=== PATIENT | female | born 1960 | race Caucasian/White ===

== ENCOUNTER 2016-10-05 05:31 | Inpatient (IN) ==
[2016-09-28 10:45] LABS: Basophils % 0.8 % (0.0-0.8); Eosinophils # 0.2 10*3/uL (0.0-0.87); Eosinophils % 2.8 % (0.00-10.9); Hematocrit 33.8 VOL% (35.7-47.0); Hemoglobin 11.8 GM/DL (12.0-16.0); Immature Granulocytes % 0.2 %; Immature Granulocytes Absolute 0.01 #; Lymphocytes # 2.6 10*3/uL (1.4-4.0); Lymphocytes % 48.6 % (21.3-54.2); Mean Corpuscular HGB Conc 34.9 GM/DL (32-36); Mean Corpuscular Hemoglobin 33 PG (27-34); Mean Corpuscular Volume 93.9 FL (87-102); Mean Platelet Volume 10.6 FL (9.6-12.0); Monocytes # 0.5 10*3/uL (0.11-0.8); Monocytes % 8.9 % (1.7-12.7); Neutrophils % 38.7 % (38.7-73.9); Platelet Count 234 T/CUMM (130-400); Red Cell Distribution Width 12.4 % (9.3-17.3); White Blood Count 5.3 T/CUMM (4-12)
[2016-09-28 10:49] LABS: Apearance,Urine CLEAR (Clear); Bilirubin,Urine Negative (Negative); Blood, Urine Small mg/dL (Negative); Glucose,Urine (UA) Negative (Negative); Hyaline Casts,Urine 2 /LPF (0-3); Ketones,Urine Negative (Negative); Nitrite,Urine Negative (Negative); Protein,Urine Negative; RBC,Urine 1 /HPF (0-4); Squamous Epithelial Cell,Urine Occasional /HPF (0-10); Urine Color Yellow (Yellow); Urine Specific Gravity 1.009 (1.001-1.035); Urine Urobilinogen < 2.0 EU/DL (0.2-1.0); WBC,Urine 1 /HPF (0-6)
--- NOTE | 2016-09-28 10:51 | XRay Report ---
XR chest 2V Indication: Respiratory preoperative evaluation Comparison: 11 December 2012 Findings: The heart and mediastinum are normal in size and configuration. The pulmonary vascularity is normal in caliber. No lung infiltrates, effusions, pneumothorax or other abnormality is demonstrated. Impression: Normal chest x-ray PROCEDURE INTERPRETED AT [facility] DEPARTMENT OF RADIOLOGY Final Report Signed by: Dr. Robles Moore
[2016-09-28 10:53] LABS: PT Patient Result 10.7 SECS; Partial Thromboplastin Time 27.9 SECS (0-40)
[2016-09-28 11:16] LABS: Albumin 4.3 G/DL (3.4-5.0); Bilirubin,Total 0.9 MG/DL (0.2-1.0); Calcium 9.6 MG/DL (8.5-10.1); Osmolality,Calculated 275.2 MOS/KG (273-304); Potassium 5.3 MMOL/L (3.5-5.1); Total Protein 7.7 G/DL (6.4-8.3)
--- NOTE | 2016-09-28 11:54 | EKG Report ---
Stationary ECG Study [facility] Test Date: 09/28/2016 10:51:17 AM Pat Name: TYSON ANDERSON Department: Room: Gender: F [employer]: MANNY [birth year] : 1960 Requested by: Neal Boyd Order Number: [id number] Reading MD: OLGA LUO Intervals [place] Rate: 96 P: 73 MI: 148 QRS: 90 QRSD: 98 T: 76 QT: 326 QTc: 379 Interpretive Statements SINUS RHYTHM LOW QRS VOLTAGE IN PRECORDIAL LEADS POSSIBLE RIGHT VENTRICULAR CONDUCTION DELAY Electronically Signed On 09-28-16 13:58:55 CDT by OLGA LUO [email or web address]
[2016-10-05] MEDS ORDERED: FAMOTIDINE 20 MG TABLET PO ONE (06:00)
[2016-10-05] MEDS ORDERED: VANCOMYCIN INJ 1,000 MG in SODIUM CHLORIDE 0.9% 250 ML IV ONE ×2 (06:00→21:00)
[2016-10-05] MEDS ORDERED: DIAZEPAM 5 MG TABLET PO ONE (06:00)
--- NOTE | 2016-10-05 06:46 | History and Physical Update ---
History and Physical Update - History and Physical H&P was reviewed, the patient examined and there: are no changes in the patients condition since last H&P was completed. - Physical Exam Heart: regular rate and rhythm Lung: clear to auscultation
[2016-10-05] MEDS ORDERED: HYDROCORTISONE 100 MG VIAL ONE ×2 (06:55→08:20)
[2016-10-05] MEDS ORDERED: VANCOMYCIN 1,000 MG VIAL ONE (07:46)
[2016-10-05] MEDS ORDERED: SODIUM CHLORIDE 0.9% 100 ML IV ONE ×2 (07:47→10:43)
[2016-10-05] MEDS ORDERED: ceFAZolin 1,000 MG VIAL ONE (07:47)
[2016-10-05] MEDS ORDERED: FAMOTIDINE 20 MG TABLET ONE (07:47)
[2016-10-05] MEDS ORDERED: DIAZEPAM 5 MG TABLET ONE (07:47)
[2016-10-05] MEDS ORDERED: PROPOFOL 200 MG/20 ML VIAL IV ONE (08:20)
[2016-10-05] MEDS ORDERED: ONDANSETRON 4 MG/2 ML VIAL ONE (08:20)
[2016-10-05] MEDS: SODIUM CHLORIDE 0.9% 1,000 ML IV SCH ×2 (08:20→09:16)
[2016-10-05] MEDS ORDERED: PHENYLEPHRINE 20 MG/250 ML PREMIX IV ONE (08:20)
[2016-10-05] MEDS ORDERED: PHENYLEPHRINE 1 MG/10 ML SYRINGE IV ONE (08:20)
[2016-10-05] MEDS ORDERED: LACTATED RINGERS 1,000 ML IV SCH (08:30)
[2016-10-05] MEDS ORDERED: TRANEXAMIC ACID 1,000 MG/10 ML VIAL IV ONE (08:37)
[2016-10-05] MEDS ORDERED: fentaNYL 100 MCG/2 ML VIAL ONE (10:30)
[2016-10-05] MEDS ORDERED: diphenhydrAMINE CAP 25 MG CAPSULE PO PRN (10:32)
[2016-10-05] MEDS ORDERED: ZALEPLON 5 MG CAPSULE PO PRN (10:32)
[2016-10-05] MEDS ORDERED: HYDROmorphone 2 MG/1 ML VIAL IV PRN ×2 (10:32→10:47)
[2016-10-05] MEDS ORDERED: oxyCODONE IR 5 MG TABLET PO PRN ×2 (10:32)
[2016-10-05] MEDS ORDERED: MAGNESIUM HYDROXIDE SUSP 30 ML UDCUP PO PRN (10:32)
--- NOTE | 2016-10-05 10:37 | Operative Note ---
Date of procedure: 10/05/16 Procedure: DIAGNOSIS: Right hip primary osteoarthritis PROCEDURE: Right total hip arthroplasty (CPT#19341) SURGEON: Aisha ANESTHESIA: Spinal PROCEDURE and FINDINGS: After adequate anesthesia was induced, the patient was placed in lateral decubitus position. Left lower extremities prepped and draped in usual sterile fashion. Posteriolateral approach to the hip was made. Skin, subcutaneous tissue and deep fascia was incised longitudinally. Gluteus alfonso muscle belly was split in line with its fibers. Piriformis, external rotators and capsule were taken down as a single layer as an inverted L shaped capsulotomy. Hip was dislocated. Templated femoral neck cut was made. Acetabulum was prepared by sequentially reaming to 55 mm. A 56 mm Continuum acetabular shell was press-fit with excellent stability. 1 6.5 millimeter screw was placed with an excellent bite. 36 mm neutral longevity liner was placed with a dome hole plug. Femur was prepared sequentially with the box osteotome, canal finder and sequential broaches to 15. Components were trialed. A size 15 Versys Advocate stem was cemented in place using Palacos cement and modern cementing techniques. A distal centralizer and cement restrictor were used. A 36 mm +0 mm head was placed. The component was stable posteriorly and anteriorly. Capsule was repaired with #5 Tycron suture to the greater trochanter. Deep fascia was closed with 0 Vicryl figure-of- eight suture. Subcutaneous tissue was closed deep with a 2-0 Vicryl runner and superficially with 3-0 interrupted buried sutures. Skin was closed with deuce. Bacitracin and a sterile occlusive dressing was applied. Surgeon / Physician: Neal Leonard Jr. Results - Labs CBC & BMP: 09/28/16 10:32 09/28/16 10:32 Discharge Plan - Discharge Medications No Action Omeprazole [Prilosec] 20 mg PO BID Fludrocortisone [Florinef] 0.2 mg PO DIRECTED Fludrocortisone [Florinef] 0.2 mg PO DAILY Hydrocortisone [Cortef Tab] 40 mg PO DAILY [place]-3/Dha/Epa/Fish Oil [Fish Oil 1,000 mg Softgel] 2,000 mg PO DAILY Levothyroxine Tab [Synthroid Tab] 150 mcg PO DAILY Hydrocortisone [Cortef Tab] 20 mg PO DIRECTED - Follow Up or Referral - Forms/Instructions
[2016-10-05 10:38] LABS: Apearance,Urine CLEAR (Clear); Bilirubin,Urine Negative (Negative); Blood, Urine Small mg/dL (Negative); Glucose,Urine (UA) Negative (Negative); Ketones,Urine Negative (Negative); Nitrite,Urine Negative (Negative); Protein,Urine Negative; RBC,Urine <1 /HPF (0-4); Urine Color Colorless (Yellow); Urine Specific Gravity 1.008 (1.001-1.035); Urine Urobilinogen < 2.0 EU/DL (0.2-1.0); WBC,Urine <1 /HPF (0-6)
[2016-10-05] MEDS ORDERED: KETAMINE 500 MG/10 ML VIAL ONE (10:42)
[2016-10-05] MEDS ORDERED: MIDAZOLAM 2 MG/2 ML VIAL ONE (10:42)
[2016-10-05] MEDS ORDERED: ePHEDrine 50 MG/ML AMP ONE (10:43)
[2016-10-05] MEDS ORDERED: SODIUM CHLORIDE 0.9% 1,000 ML IV ONE (10:43)
[2016-10-05] MEDS ORDERED: SODIUM CHLORIDE 0.9% 250 ML IV ONE (10:43)
[2016-10-05] MEDS ORDERED: ONDANSETRON 4 MG/2 ML VIAL IV PRN (10:47)
[2016-10-05] MEDS ORDERED: FLUDROCORTISONE 0.1 MG TABLET PO SCH (11:00)
[2016-10-05] MEDS: LACTATED RINGERS 1,000 ML IV SCH ×2 (12:24→22:10)
[2016-10-05] MEDS: KETOROLAC 30 MG/1 ML VIAL IV SCH ×3 (12:24→23:32)
--- NOTE | 2016-10-05 12:35 | XRay Report ---
XR hip 1V RT Indication: Right hip replacement. Right hip one view: Immediate postoperative changes of right DAYRON noted with a prosthetic joint present in normal anatomic alignment. No periprosthetic fracture shown. Skin deuce and soft tissue emphysema surrounds the hip joint. Impression: Anatomic alignment following DAYRON. PROCEDURE INTERPRETED AT [facility] DEPARTMENT OF RADIOLOGY Final Report Signed by: Maxim Barron M.D.
[2016-10-05] MEDS: ACETAMINOPHEN 500 MG TABLET PO SCH ×2 (14:03→20:17)
[2016-10-05] MEDS: HYDROmorphone 2 MG/1 ML VIAL IV PRN ×2 (14:04→18:36)
--- NOTE | 2016-10-05 14:21 | Anesthesia Post-Op ---
Anesthesia Post OP - Post Ansesthetic Evaluation Patient seen in post op: Yes Resp: within normal limits CV: within normal limits Mental: within normal limits Temp: within normal limits Jqto-Yf-Mteqxpale: within normal limits Nausea and Vomiting: within normal limits Pain: within normal limits
--- NOTE | 2016-10-05 15:06 | Orthopedic Progress Note ---
Orthopedics - Subjective Interval history: Comfortable postop. Dressing clean, dry and intact. She can flex extend her toes. She is currently working with physical therapy. Plan: Continue with orders. Exam - Constitutional Vitals: Period Temp Pulse Resp BP Sys/German Pulse Ox Last 24 Hr 97.6 F-98.8 F 73-92 16-20 85-107/61-85 97-100 Results - Labs CBC & BMP: 09/28/16 10:32 09/28/16 10:32
[2016-10-05] MEDS: DOCUSATE SODIUM 100 MG CAPSULE PO SCH (20:18)
[2016-10-05] MEDS: PANTOPRAZOLE 40 MG TABLET PO SCH (20:22)
[2016-10-05] MEDS: ONDANSETRON 4 MG/2 ML VIAL IV PRN (20:50)
[2016-10-05] MEDS ORDERED: HYDROCORTISONE 10 MG TABLET PO PRN (21:30)
[2016-10-06] MEDS: ACETAMINOPHEN 500 MG TABLET PO SCH ×2 (03:09→08:14)
[2016-10-06] MEDS: KETOROLAC 30 MG/1 ML VIAL IV SCH (04:38)
[2016-10-06 06:11] LABS: Basophils % 0.2 % (0.0-0.8); Eosinophils # 0.1 10*3/uL (0.0-0.87); Eosinophils % 1.4 % (0.00-10.9); Hematocrit 22.1 VOL% (35.7-47.0); Hemoglobin 7.6 GM/DL (12.0-16.0); Immature Granulocytes % 0.2 %; Immature Granulocytes Absolute 0.01 #; Lymphocytes # 1.6 10*3/uL (1.4-4.0); Lymphocytes % 36.8 % (21.3-54.2); Mean Corpuscular HGB Conc 34.4 GM/DL (32-36); Mean Corpuscular Hemoglobin 33 PG (27-34); Mean Corpuscular Volume 96.1 FL (87-102); Mean Platelet Volume 11.4 FL (9.6-12.0); Monocytes # 0.4 10*3/uL (0.11-0.8); Monocytes % 9.5 % (1.7-12.7); Neutrophils # 2.2 10*3/uL (1.4-7.4); Neutrophils % 51.9 % (38.7-73.9); Platelet Count 127 T/CUMM (130-400); Red Cell Distribution Width 12.3 % (9.3-17.3); White Blood Count 4.2 T/CUMM (4-12)
[2016-10-06] MEDS ORDERED: FUROSEMIDE 20 MG/2 ML VIAL IV PRN (06:32)
[2016-10-06] MEDS ORDERED: SODIUM CHLORIDE 0.9% 250 ML IV PRN (06:32)
[2016-10-06 06:35] LABS: Calcium 7.6 MG/DL (8.5-10.1); Osmolality,Calculated 280.1 MOS/KG (273-304); Potassium 4.9 MMOL/L (3.5-5.1)
[2016-10-06] MEDS: HYDROmorphone 2 MG/1 ML VIAL IV PRN (08:12)
[2016-10-06] MEDS: FONDAPARINUX 2.5 MG/0.5 ML SYRINGE SUBCUT SCH (08:13)
[2016-10-06] MEDS: DOCUSATE SODIUM 100 MG CAPSULE PO SCH ×2 (08:14→21:41)
[2016-10-06] MEDS: OMEGA 3 ACID ETHYL ESTERS 1 GM CAPSULE PO SCH (08:14)
[2016-10-06] MEDS: FLUDROCORTISONE 0.1 MG TABLET PO SCH (08:14)
[2016-10-06] MEDS: HYDROCORTISONE 10 MG TABLET PO SCH (08:15)
[2016-10-06] MEDS: LEVOTHYROXINE 150 MCG TABLET PO SCH (08:15)
[2016-10-06] MEDS: PANTOPRAZOLE 40 MG TABLET PO SCH ×2 (08:15→21:41)
--- NOTE | 2016-10-06 08:24 | Orthopedic Progress Note ---
Orthopedics - Subjective Interval history: Sore. Just got pain medicine. Complaining of numbness to her anterior thigh and knee. motors intact. dressing dry. Transfuse for acute blood loss and chronic anemia. Mobilize with therapy. Probable residual from spinal. Watch numbness. Exam - Constitutional Vitals: Period Temp Pulse Resp BP Sys/German Pulse Ox Last 24 Hr 97.6 F-98.9 F 73-99 12-20 85-117/59-80 90-100 Results - Labs CBC & BMP: 10/06/16 04:30 10/06/16 04:30
[2016-10-06] MEDS: ONDANSETRON 4 MG/2 ML VIAL IV PRN (09:36)
[2016-10-06] MEDS: CELECOXIB 200 MG CAPSULE PO SCH (13:22)
[2016-10-06] MEDS ORDERED: FUROSEMIDE 20 MG/2 ML VIAL IV ONE (13:24)
[2016-10-06] MEDS ORDERED: FUROSEMIDE 20 MG/2 ML VIAL ONE (13:26)
--- NOTE | 2016-10-06 14:22 | Pathology Report from [facility] ---
[facility] ACCESSION # : [id number] PATIENT NAME : Yolanda Anderson ORDERING DR : HUANG NUÑEZ MD CLINICAL HX: Right hip osteoarthritis POST-OP DX: Same SPECIMEN INFO: Right hip bone and tissue GROSS DESCRIPTION: The specimen is received in formalin labeled with the patients name and consists of a femoral head measuring 5.0 x 5.5 x 5.8 cm. The articular surface is focally degenerative with no subchondral eburnation seen. The surgical margin is smooth with some softening appreciated. Received separately in the container are multiple fragments of hemorrhagic bone and soft tissue measuring 13.0 x 3.0 cm in aggregate. Toxicology Teacher tissue submitted in one cassette following decalcification. DIAGNOSIS FOR YOLANDA ANDERSON: RIGHT HIP BONE AND TISSUE, TOTAL REPLACEMENT: Osteoarthritis. COLLECTED DATE: 10/05/[address] [facility] REPORT DATE: 10/06/2016 ELECTRONICALLY SIGNED BY: Cirilo Pennington M.D. 10/06/2016 - 9:32:23 [email or web address]
[2016-10-07 05:21] LABS: Basophils % 0.2 % (0.0-0.8); Eosinophils # 0.1 10*3/uL (0.0-0.87); Eosinophils % 2.8 % (0.00-10.9); Hematocrit 28.7 VOL% (35.7-47.0); Hemoglobin 9.8 GM/DL (12.0-16.0); Immature Granulocytes % 0.2 %; Immature Granulocytes Absolute 0.01 #; Lymphocytes # 1.3 10*3/uL (1.4-4.0); Lymphocytes % 29.3 % (21.3-54.2); Mean Corpuscular HGB Conc 34.1 GM/DL (32-36); Mean Corpuscular Hemoglobin 31 PG (27-34); Mean Platelet Volume 10.8 FL (9.6-12.0); Monocytes # 0.4 10*3/uL (0.11-0.8); Monocytes % 8.8 % (1.7-12.7); Neutrophils # 2.6 10*3/uL (1.4-7.4); Neutrophils % 58.7 % (38.7-73.9); Platelet Count 106 T/CUMM (130-400); Red Blood Count 3.12 MC/CUMM (3.8-5.5); Red Cell Distribution Width 14.9 % (9.3-17.3); White Blood Count 4.3 T/CUMM (4-12)
[2016-10-07 05:55] LABS: Calcium 8.1 MG/DL (8.5-10.1); Osmolality,Calculated 287.7 MOS/KG (273-304); Potassium 5.1 MMOL/L (3.5-5.1)
--- NOTE | 2016-10-07 07:37 | Orthopedic Progress Note ---
Orthopedics - Subjective Interval history: Ms. Suazo feels better today. She still complaining of numbness to the anterior aspect of her thigh, knee and proximal leg. Sensation and motor function to her foot or ankles intact. She is able to contract her quads. Her dressing is clean, dry and intact. Plan: Continue with physical therapy. Observe numbness for now, I anticipate that it should improve. Home probably tomorrow. Exam - Constitutional Vitals: Period Temp Pulse Resp BP Sys/German Pulse Ox Last 24 Hr 96.8 F-98.4 F 69-93 16-84 76-105/49-67 92-100 Results - Labs CBC & BMP: 10/07/16 05:06 10/07/16 05:06
[2016-10-07] MEDS: FONDAPARINUX 2.5 MG/0.5 ML SYRINGE SUBCUT SCH (08:19)
[2016-10-07] MEDS: OMEGA 3 ACID ETHYL ESTERS 1 GM CAPSULE PO SCH (08:19)
[2016-10-07] MEDS: HYDROCORTISONE 10 MG TABLET PO SCH (08:19)
[2016-10-07] MEDS: PANTOPRAZOLE 40 MG TABLET PO SCH ×2 (08:20→21:03)
[2016-10-07] MEDS: DOCUSATE SODIUM 100 MG CAPSULE PO SCH ×2 (08:20→21:03)
[2016-10-07] MEDS: FLUDROCORTISONE 0.1 MG TABLET PO SCH (08:20)
[2016-10-07] MEDS: LEVOTHYROXINE 150 MCG TABLET PO SCH (08:20)
--- NOTE | 2016-10-07 09:35 | Physician Query Form ---
CLICK EDIT DOCUMENT TO SELECT QUERY ANSWER --> OK --> SIGN Odalis Carlisle RN Clinical Crib Pad Maker W) [phone] (f) [phone] [email or web address] PROVIDERS: Make your selection(s) from the choices in EACH section by typing an "x" and enter comments in the comment section. Please use your independent medical judgment in providing your response. This request does not imply that any particular answer is desired or expected. CLINICAL INDICATORS: (Providers should not edit this section) Based on documentation of Creatinine from 1.7 to 2.3. GFR from 32 to 23. Treated with NS infusion. Clarify which of the following most accurately represents the patient's renal status: ( x) Acute kidney injury (non-traumatic) ( ) Acute renal failure ( ) Acute renal failure with underlying Chronic Kidney Disease (CKD) - please provide stage below ( ) Acute renal failure with pathological renal lesion ( ) Acute renal failure with necrosis ( ) tubular ( ) medullary ( ) cortical ( ) CKD - please provide stage below ( ) End Stage Renal Disease ( ) Acute interstitial nephritis ( ) Hepatorenal syndrome ( ) Other, please specify: ( ) Clinically unable to determine Chronic Kidney Disease Stages Source: National Kidney Disease Foundation ( ) Stage I (eGFR > or = 90) ( ) Stage II (eGFR 60 - 89) ( ) Stage III (eGFR 30 - 59) ( ) Stage IV (eGFR 15 - 29) ( ) Stage V (eGFR < 15 or dialysis) COMMENTS: PLEASE ALSO DOCUMENT RESPONSE IN PROGRESS NOTES AND/OR DISCHARGE SUMMARY Use of terms such as suspected, likely, or probable (associated with a specific diagnosis that is being evaluated, monitored, or treated as if it exists) are acceptable and can be restated in the discharge summary if not ruled out. MTDD
[2016-10-07] MEDS: CELECOXIB 200 MG CAPSULE PO SCH (12:51)
[2016-10-08 05:39] LABS: Basophils % 0.2 % (0.0-0.8); Eosinophils # 0.1 10*3/uL (0.0-0.87); Eosinophils % 2.7 % (0.00-10.9); Hematocrit 28.5 VOL% (35.7-47.0); Hemoglobin 9.7 GM/DL (12.0-16.0); Immature Granulocytes % 0.2 %; Immature Granulocytes Absolute 0.01 #; Lymphocytes # 1.4 10*3/uL (1.4-4.0); Lymphocytes % 27.1 % (21.3-54.2); Mean Corpuscular Hemoglobin 31 PG (27-34); Mean Corpuscular Volume 92.2 FL (87-102); Mean Platelet Volume 11.4 FL (9.6-12.0); Monocytes # 0.5 10*3/uL (0.11-0.8); Monocytes % 9.7 % (1.7-12.7); Neutrophils # 3.1 10*3/uL (1.4-7.4); Neutrophils % 60.1 % (38.7-73.9); Platelet Count 118 T/CUMM (130-400); Red Blood Count 3.09 MC/CUMM (3.8-5.5); White Blood Count 5.2 T/CUMM (4-12)
[2016-10-08 06:12] LABS: Calcium 8.2 MG/DL (8.5-10.1); Osmolality,Calculated 289.3 MOS/KG (273-304)
--- NOTE | 2016-10-08 07:03 | Discharge Summary ---
Hospital Course - Hospital Course Hospital Course: Ms. Suazo was admitted after undergoing a right hybrid total hip arthroplasty. She received perioperative DVT and antimicrobial prophylaxis. She received physical therapy. She was discharged home in stable condition. The patient creatinine ghislaine to 2.3 before returning to baseline at 1.6 consistent with an acute renal injury. Slight serosanguineous drainage. Right lower extremity is neurovascularly unchanged. Discharge instructions were reviewed. Specialty Discharge - Follow Up or Referrals Follow up with: Neal Leonard Jr., MD [Physician] - 11/08/16 1:00 pm Discharge Plan - Discharge Data Disposition: Home Health Service Discharge Diet: advance to your usual diet Hygiene: may shower Weight Bearing at Discharge: weight bear as tolerated Driving: not until seen by doctor - Discharge Medications New HYDROcodone/ACETAMIN 7.5-325 [[place] 7.5-325] 2 tablet PO Q4H PRN tablet PRN Reason: Moderate Pain unrelieved by 1 HYDROcodone/ACETAMIN 7.5-325 [[place] 7.5-325] 1 tablet PO Q4H PRN tablet PRN Reason: Pain Moderate (4-7) Continue Omeprazole [Prilosec] 20 mg PO BID Fludrocortisone [Florinef] 0.1 mg PO BID Hydrocortisone [Cortef Tab] 40 mg PO QAM [place]-3/Dha/Epa/Fish Oil [Fish Oil 1,000 mg Softgel] 2,000 mg PO BEDTIME Hydrocortisone [Cortef Tab] 20 mg PO TUTHSA PRN PRN Reason: Itching Levothyroxine Tab [Synthroid Tab] 150 mcg PO DAILY Hydrocortisone [Cortef Tab] 20 mg PO BEDTIME - Follow Up or Referral Follow Up: Neal Leonard Jr., MD [Physician] - 11/08/16 1:00 pm - Forms/Instructions Additional Discharge Instructions: Posterior hip precautions for 3 months. Daily dry dressing changes. Arrange for walker and bedside commode for home use. Wear MART hose for 1 month. Follow-up appointment in 4 weeks. Discontinue deuce and Steri-Strip wound on October 18, 2016. Prescription for [place] 7.5 with 30 tablets. Take aspirin 325 mg by mouth daily for 21 days.. Exam - Constitutional Vitals: Period Temp Pulse Resp BP Sys/German Pulse Ox Last 24 Hr 97.3 F-98.5 F 77-88 18-20 81-116/51-73 90-99 Discharge Results Labs on day of discharge: Labs from last 24 hours 10/08/16 10/08/16 04:09 04:09 WBC 5.2 RBC 3.09 L Hgb 9.7 L Hct 28.5 L MCV 92.2 MCH 31 MCHC 34.0 RDW 15.0 Plt Count 118 L MPV 11.4 Neut % (Auto) 60.1 Lymph % (Auto) 27.1 [place] % (Auto) 9.7 Eos % (Auto) 2.7 Baso % (Auto) 0.2 Neut # (Auto) 3.1 Lymph # (Auto) 1.4 [place] # (Auto) 0.5 Eos # (Auto) 0.1 Baso # (Auto) 0.0 Immature Gran % 0.2 Nucleated RBC % 0.0 Immature Gran # 0.01 Nucleated RBCs # 0.00 Immature Plt Fraction 0.0 Sodium 141 Potassium 5.0 Chloride 110 H Carbon Dioxide 20 L Anion Gap 16.0 H BUN 39 H D Creatinine 1.60 H GFR Calculation 36 BUN/Creatinine Ratio 24.00 H Glucose 96 Calculated Osmolality 289.3 Calcium 8.2 L DS: Provider Date of admission: 10/05/16 05:31 Primary care physician: Sushil Mckenzie MD Attending physician on admission: Neal Leonard Jr., Consults: 10/05/16 10:32 Consult to Case Mgmt/Social Srvs [CONS] Routine Reason for Case Mgmt/Social Srvs: Rehab Home Health Equipment Consult Comment: Bedside Commode, Del to RM 318 before patient is D/C'd home Consult to Occupational Therapy [CONS] Routine Reason for Occupational Therapy: Evaluate and Treat Consult Comment: ADL's Consult to Physical Therapy [CONS] Routine Reason for Physical Therapy: Evaluate and Treat Gait Training Start Therapy: Today Consult Comment: wbat, hip precautions 10/06/16 13:13 Consult to Physical Therapy [CONS] Routine Reason for Physical Therapy: Other Consult Comment: Deliver Standard Walker to patient's room 318 before D/C home. Discharging clinician: Neal Leonard Jr., Expected date of discharge: 10/08/16
[2016-10-08] MEDS: OMEGA 3 ACID ETHYL ESTERS 1 GM CAPSULE PO SCH (08:55)
[2016-10-08] MEDS: PANTOPRAZOLE 40 MG TABLET PO SCH (08:55)
[2016-10-08] MEDS: DOCUSATE SODIUM 100 MG CAPSULE PO SCH (08:55)
[2016-10-08] MEDS: FONDAPARINUX 2.5 MG/0.5 ML SYRINGE SUBCUT SCH (08:57)
[2016-10-08] MEDS: LEVOTHYROXINE 150 MCG TABLET PO SCH (08:57)
[2016-10-08] MEDS: FLUDROCORTISONE 0.1 MG TABLET PO SCH (09:02)
[2016-10-08] MEDS: HYDROCORTISONE 10 MG TABLET PO SCH (09:02)
[2016-10-08 11:40] VITALS: BP 115/77
== END 2016-10-08 12:30 | disposition home health service (06) | DRG 470 ==
LOC: N.SDSINP 05:31 → N.3E 08:35
PROVIDERS: ADMIT Orthopaedic Surgery; ATTEND Orthopaedic Surgery

== ENCOUNTER 2017-03-02 11:49 | Inpatient (IN) ==
[2017-03-02] MEDS ORDERED: ONDANSETRON 4 MG/2 ML VIAL IV STA (12:13)
[2017-03-02] MEDS ORDERED: SODIUM CHLORIDE 0.9% 1,000 ML IV STA ×3 (12:13→16:11)
[2017-03-02] MEDS ORDERED: LOPERAMIDE 2 MG CAPSULE PO STA (12:13)
[2017-03-02] MEDS ORDERED: DEXAMETHASONE 10 MG/1 ML VIAL IV STA (12:17)
[2017-03-02] MEDS ORDERED: LEVOFLOXACIN INJ 750 MG in PREMIX 1 EACH IV STA (12:17)
[2017-03-02 12:32] LABS: Basophils % 0.1 % (0.0-0.8); Eosinophils # 0.1 10*3/uL (0.0-0.87); Eosinophils % 0.8 % (0.00-10.9); Hematocrit 39.6 VOL% (35.7-47.0); Hemoglobin 13.3 GM/DL (12.0-16.0); Immature Granulocytes % 0.3 %; Immature Granulocytes Absolute 0.02 #; Lymphocytes # 0.7 10*3/uL (1.4-4.0); Lymphocytes % 9.8 % (21.3-54.2); Mean Corpuscular HGB Conc 33.6 GM/DL (32-36); Mean Corpuscular Hemoglobin 33 PG (27-34); Mean Corpuscular Volume 97.8 FL (87-102); Mean Platelet Volume 10.7 FL (9.6-12.0); Monocytes # 0.2 10*3/uL (0.11-0.8); Monocytes % 2.2 % (1.7-12.7); Neutrophils # 6.3 10*3/uL (1.4-7.4); Neutrophils % 86.8 % (38.7-73.9); Platelet Count 180 T/CUMM (130-400); Red Blood Count 4.05 MC/CUMM (3.8-5.5); Red Cell Distribution Width 11.9 % (9.3-17.3); White Blood Count 7.3 T/CUMM (4-12)
[2017-03-02] MEDS ORDERED: LOPERAMIDE 2 MG CAPSULE ONE (12:37)
[2017-03-02] MEDS ORDERED: LEVOFLOXACIN INJ 150 ML IV ONE (12:37)
[2017-03-02] MEDS ORDERED: ONDANSETRON 4 MG/2 ML VIAL ONE (12:37)
[2017-03-02] MEDS ORDERED: DEXAMETHASONE 10 MG/1 ML VIAL ONE (12:37)
[2017-03-02 13:02] LABS: Lactic Acid 1.2 MMOL/L (0.4-2.0)
[2017-03-02 13:07] LABS: Troponin I Only < 0.015 NG/ML (0.00-0.045)
[2017-03-02 13:11] LABS: Albumin 4.3 G/DL (3.4-5.0); Bilirubin,Total 1.1 MG/DL (0.2-1.0); Calcium 9.1 MG/DL (8.5-10.1); Free T4 (Free Thyroxine) 0.77 NG/DL (0.76-1.46); Thyroid Stimulating Hormone 11.5 uIU/ml (0.358-3.74); Total Protein 8.4 G/DL (6.4-8.3)
[2017-03-02] MEDS ORDERED: SODIUM POLYSTYRENE SULFATE 15 GM/60 ML BOTTLE PO STA (14:11)
[2017-03-02 14:44] LABS: Apearance,Urine CLEAR (Clear); Bacteria,Urine Many /HPF (Few); Bilirubin,Urine Negative (Negative); Blood, Urine Small mg/dL (Negative); Glucose,Urine (UA) Negative (Negative); Ketones,Urine Negative (Negative); Mucus,Urine Occasional /LPF (Occasional); Nitrite,Urine Negative (Negative); Protein,Urine Negative; RBC,Urine 9 /HPF (0-4); Urine Color Straw (Yellow); Urine Specific Gravity 1.009 (1.001-1.035); Urine Urobilinogen < 2.0 EU/DL (0.2-1.0); WBC,Urine 3 /HPF (0-6)
[2017-03-02] MEDS ORDERED: SODIUM POLYSTYRENE SULFATE 15 GM/60 ML BOTTLE ONE (15:07)
[2017-03-02] MEDS ORDERED: ONDANSETRON 4 MG/2 ML VIAL IV PRN (16:09)
[2017-03-02] MEDS ORDERED: HYDROCORTISONE 100 MG VIAL ONE (18:23)
[2017-03-02] MEDS: SODIUM CHLORIDE 0.9% 1,000 ML IV SCH (18:30)
[2017-03-02] MEDS: HYDROCORTISONE 100 MG VIAL IV SCH (18:30)
[2017-03-02] MEDS ORDERED: ACETAMINOPHEN 325 MG TABLET ONE (18:38)
[2017-03-02] MEDS: ACETAMINOPHEN 325 MG TABLET PO PRN ×2 (18:40→22:35)
[2017-03-02] MEDS: ENOXAPARIN 40 MG/0.4 ML SYRINGE SUBCUT SCH (21:00)
[2017-03-03] MEDS: SODIUM CHLORIDE 0.9% 1,000 ML IV SCH ×6 (00:27→23:33)
[2017-03-03] MEDS: HYDROCORTISONE 100 MG VIAL IV SCH ×3 (02:57→17:39)
[2017-03-03 05:53] LABS: Hematocrit 26.5 VOL% (35.7-47.0); Immature Granulocytes % 0.5 %; Immature Granulocytes Absolute 0.02 #; Lymphocytes # 0.5 10*3/uL (1.4-4.0); Lymphocytes % 11.5 % (21.3-54.2); Mean Corpuscular Hemoglobin 33 PG (27-34); Mean Corpuscular Volume 95.7 FL (87-102); Mean Platelet Volume 11.2 FL (9.6-12.0); Monocytes # 0.1 10*3/uL (0.11-0.8); Monocytes % 1.4 % (1.7-12.7); Neutrophils # 3.8 10*3/uL (1.4-7.4); Neutrophils % 86.6 % (38.7-73.9); Platelet Count 148 T/CUMM (130-400); Red Cell Distribution Width 12.3 % (9.3-17.3)
[2017-03-03 06:27] LABS: Red Blood Count 2.77 MC/CUMM (3.8-5.5); White Blood Count 4.3 T/CUMM (4-12)
[2017-03-03 06:40] LABS: Bilirubin,Total 0.8 MG/DL (0.2-1.0); Calcium 7.5 MG/DL (8.5-10.1); Magnesium 1.1 MG/DL (1.8-2.4); Osmolality,Calculated 277.8 MOS/KG (273-304); Potassium 4.9 MMOL/L (3.5-5.1); Total Protein 5.7 G/DL (6.4-8.3)
[2017-03-03] MEDS ORDERED: MAGNESIUM SULF RIDER 4 GM in PREMIX 1 EACH IV PRN (06:51)
[2017-03-03] MEDS ORDERED: MAGNESIUM SULF RIDER 2 GM in PREMIX 1 EACH IV PRN (06:51)
[2017-03-03 07:12] LABS: Lymphocytes 4 % (20-55); Platelet Estimate Normal; Segmented Neutrophils 95 % (50-85); Total Cells Counted 100
[2017-03-03] MEDS: ACETAMINOPHEN 325 MG TABLET PO PRN (07:30)
[2017-03-03] MEDS: PANTOPRAZOLE 40 MG TABLET PO SCH (08:20)
[2017-03-03] MEDS ORDERED: ALUMINUM/MAGNES/SIMETH MAX STR 30 ML UDCUP PO PRN (12:03)
[2017-03-03] MEDS ORDERED: BENZONATATE 100 MG CAPSULE PO PRN (12:03)
[2017-03-03] MEDS: ENOXAPARIN 40 MG/0.4 ML SYRINGE SUBCUT SCH (21:51)
[2017-03-04] MEDS: HYDROCORTISONE 100 MG VIAL IV SCH ×4 (02:34→23:45)
[2017-03-04] MEDS: SODIUM CHLORIDE 0.9% 1,000 ML IV SCH ×2 (03:28→09:40)
[2017-03-04] MEDS: PANTOPRAZOLE 40 MG TABLET PO SCH (09:41)
[2017-03-04] MEDS: ENOXAPARIN 40 MG/0.4 ML SYRINGE SUBCUT SCH (21:02)
[2017-03-04] MEDS: ACETAMINOPHEN 325 MG TABLET PO PRN (21:02)
[2017-03-05] MEDS: LEVOTHYROXINE 150 MCG TABLET PO SCH (07:30)
[2017-03-05] MEDS: HYDROCORTISONE 100 MG VIAL IV SCH ×2 (07:35→20:42)
[2017-03-05] MEDS: PANTOPRAZOLE 40 MG TABLET PO SCH (09:39)
[2017-03-05] MEDS: ENOXAPARIN 40 MG/0.4 ML SYRINGE SUBCUT SCH (20:43)
[2017-03-06] MEDS: LEVOTHYROXINE 150 MCG TABLET PO SCH (06:04)
[2017-03-06] MEDS: HYDROCORTISONE 100 MG VIAL IV SCH (08:52)
[2017-03-06] MEDS: PANTOPRAZOLE 40 MG TABLET PO SCH (08:52)
[2017-03-06 09:43] VITALS: BP 135/95
== END 2017-03-06 11:25 | disposition home health service (06) | DRG 644 ==
LOC: N.ED 11:49 → N.EDINP 14:10 → N.TELEN 19:16
PROVIDERS: ADMIT Pediatrics; ATTEND Pediatrics

== ENCOUNTER 2021-06-23 07:30 | Inpatient (IN) ==
[2021-06-23] MEDS ORDERED: ACETAMINOPHEN 500 MG TABLET ONE (08:38)
[2021-06-23] MEDS ORDERED: SODIUM CHLORIDE 0.9% 1,000 ML IV STA ×3 (08:48→11:53)
[2021-06-23] MEDS ORDERED: ONDANSETRON 4 MG/2 ML VIAL IV STA (09:15)
[2021-06-23 09:25] LABS: Basophils % 0.4 % (0.0-0.8); Eosinophils # 0.2 10*3/uL (0.0-0.87); Eosinophils % 2.9 % (0.00-10.9); Hematocrit 37.1 VOL% (35.7-47.0); Hemoglobin 12.4 GM/DL (12.0-16.0); Immature Granulocytes % 0.5 %; Immature Granulocytes Absolute 0.03 #; Lymphocytes # 0.6 10*3/uL (1.4-4.0); Lymphocytes % 11.5 % (21.3-54.2); Mean Corpuscular HGB Conc 33.4 GM/DL (32-36); Mean Corpuscular Volume 96.9 FL (87-102); Mean Platelet Volume 9.9 FL (9.6-12.0); Monocytes # 0.1 10*3/uL (0.11-0.8); Monocytes % 1.3 % (1.7-12.7); Neutrophils % 83.4 % (38.7-73.9); Platelet Count 163 T/CUMM (130-400); Red Blood Count 3.83 MC/CUMM (3.8-5.5); Red Cell Distribution Width 12.1 % (9.3-17.3); White Blood Count 5.6 T/CUMM (4-12)
[2021-06-23 09:46] LABS: Alanine Aminotransferase 22 U/L (13-56); Albumin 3.9 G/DL (3.4-5.0); Alkaline Phosphatase 42 U/L (45-117); Aspartate Amino Transferase 21 U/L (0-37); Blood Urea Nitrogen 38 MG/DL (7-18); Calcium 8.1 MG/DL (8.5-10.1); Carbon Dioxide 16 MMOL/L (21-32); Chloride 105 MMOL/L (98-107); Estimated Glom Filtration Rate 28 ML/MIN; Glucose 85 MG/DL (74-106); Osmolality,Calculated 271.5 MOS/KG (273-304); Potassium 3.1 MMOL/L (3.5-5.1); Sodium 132 MMOL/L (136-145); Total Protein 7.6 G/DL (6.4-8.2)
[2021-06-23] MEDS ORDERED: HYDROCORTISONE 100 MG VIAL IV STA (09:49)
[2021-06-23] MEDS ORDERED: POTASSIUM CHLORIDE 20 MEQ TABLET PO STA (11:01)
[2021-06-23] MEDS ORDERED: ALBUTEROL 2.5 MG/3 ML NEB RESP TX PRN (12:26)
[2021-06-23] MEDS ORDERED: ONDANSETRON 4 MG/2 ML VIAL IV PRN (12:26)
[2021-06-23] MEDS ORDERED: ACETAMINOPHEN 325 MG TABLET PO PRN (12:26)
[2021-06-23] MEDS: SODIUM CHLORIDE 0.9% 1,000 ML IV SCH ×2 (12:40→19:34)
[2021-06-23] MEDS: ENOXAPARIN 30 MG/0.3 ML SYRINGE SUBCUT SCH (12:45)
[2021-06-23] MEDS ORDERED: MAGNESIUM SULF RIDER 2 GM/50 ML PREMIX IV PRN (13:00)
[2021-06-23] MEDS ORDERED: MAGNESIUM SULF RIDER 4 GM/100 ML PREMIX IV PRN (13:00)
[2021-06-23 13:03] LABS: Arterial Base Excess iSTAT -13 MMOL/L (-2.5-2.5); Arterial Bicarbonate iSTAT 11.7 MMOL/L (20-26); Arterial O2 Saturation iSTAT 97 % (95-100); Arterial PCO2 iSTAT 24 MM HG (35-48); Arterial PO2 iSTAT 96 MM HG (80-95); Arterial Total CO2 iSTAT 12 MMO/L (23-27); Arterial pH iSTAT 7.305 (7.35-7.45)
[2021-06-23 13:16] LABS: Bacteria,Urine Occasional /HPF (Few); Mucus,Urine Occasional /LPF (Occasional); RBC,Urine 4 /HPF (0-4); Squamous Epithelial Cell,Urine Occasional /HPF (0-10)
[2021-06-23 13:19] LABS: Glucose,Urine (UA) Negative (Negative); Ketones,Urine Negative (Negative); Nitrite,Urine Negative (Negative); Protein,Urine Negative (Negative); Urine Appearance Clear (Clear); Urine Color Yellow (Yellow)
[2021-06-23 13:20] LABS: Bilirubin,Urine Negative (Negative); Blood, Urine Trace mg/dL (Negative); Urine Urobilinogen 0.2 eU/dL (<2.0)
[2021-06-23] MEDS: metroNIDAZOLE INJ 500 MG/100 ML PREMIX IV SCH ×2 (13:50→20:12)
[2021-06-23] MEDS: PANTOPRAZOLE 40 MG VIAL IV SCH (14:09)
[2021-06-23] MEDS: POTASSIUM CHLORIDE RIDER 10 MEQ/100 ML PREMIX IV PRN ×4 (14:14→17:41)
[2021-06-23] MEDS: CIPROFLOXACIN INJ 400 MG/200 ML PREMIX IV SCH (14:52)
[2021-06-23 17:05] LABS: Calcium 6.9 MG/DL (8.5-10.1); Osmolality,Calculated 283.5 MOS/KG (273-304); Potassium 3.8 MMOL/L (3.5-5.1)
[2021-06-23] MEDS: HYDROCORTISONE 100 MG VIAL IV SCH (17:38)
[2021-06-24] MEDS: HYDROCORTISONE 100 MG VIAL IV SCH ×3 (03:07→18:36)
[2021-06-24] MEDS: SODIUM CHLORIDE 0.9% 1,000 ML IV SCH (03:22)
[2021-06-24 03:39] LABS: Basophils % 0.1 % (0.0-0.8); Eosinophils # 0.1 10*3/uL (0.0-0.87); Eosinophils % 0.9 % (0.00-10.9); Hemoglobin 8.8 GM/DL (12.0-16.0); Immature Granulocytes % 0.5 %; Immature Granulocytes Absolute 0.04 #; Lymphocytes # 0.8 10*3/uL (1.4-4.0); Lymphocytes % 11.4 % (21.3-54.2); Mean Corpuscular HGB Conc 33.8 GM/DL (32-36); Mean Corpuscular Volume 96.3 FL (87-102); Mean Platelet Volume 9.9 FL (9.6-12.0); Monocytes # 0.3 10*3/uL (0.11-0.8); Monocytes % 4.1 % (1.7-12.7); Platelet Count 119 T/CUMM (130-400); Red Cell Distribution Width 12.3 % (9.3-17.3); White Blood Count 7.4 T/CUMM (4-12)
[2021-06-24 04:04] LABS: Albumin 2.9 G/DL (3.4-5.0); Band Neutrophils 2 % (0-10); Bilirubin,Total 0.9 MG/DL (0.20-1.00); Calcium 6.6 MG/DL (8.5-10.1); Hypochromia Slight; Lymphocytes 10 % (20-55); Microcytosis Slight; Osmolality,Calculated 282.4 MOS/KG (273-304); Potassium 3.9 MMOL/L (3.5-5.1); Total Cells Counted 100; Total Protein 5.9 G/DL (6.4-8.2)
[2021-06-24] MEDS: metroNIDAZOLE INJ 500 MG/100 ML PREMIX IV SCH ×3 (06:08→20:28)
[2021-06-24] MEDS ORDERED: CALCIUM GLUCONATE RIDER 1,000 MG/50 ML PREMIX IV ONE (08:15)
[2021-06-24] MEDS: POTASSIUM CHLORIDE 20 MEQ TABLET PO PRN (08:15)
[2021-06-24] MEDS: LACTATED RINGERS 1,000 ML IV SCH ×3 (08:24→20:28)
[2021-06-24] MEDS: CIPROFLOXACIN INJ 400 MG/200 ML PREMIX IV SCH (08:59)
[2021-06-24] MEDS: ENOXAPARIN 30 MG/0.3 ML SYRINGE SUBCUT SCH (15:00)
[2021-06-24] MEDS: PANTOPRAZOLE 40 MG VIAL IV SCH (15:00)
[2021-06-24] MEDS: FLUDROCORTISONE 0.1 MG TABLET PO SCH ×2 (15:00→20:28)
[2021-06-24] MEDS: SODIUM BICARBONATE 650 MG TABLET PO SCH ×2 (15:00→20:28)
[2021-06-25] MEDS: CIPROFLOXACIN INJ 400 MG/200 ML PREMIX IV SCH ×2 (02:08→20:42)
[2021-06-25] MEDS: HYDROCORTISONE 100 MG VIAL IV SCH (02:08)
[2021-06-25 03:53] LABS: Eosinophils % 0.2 % (0.00-10.9); Hematocrit 24.1 VOL% (35.7-47.0); Hemoglobin 8.3 GM/DL (12.0-16.0); Immature Granulocytes % 0.7 %; Immature Granulocytes Absolute 0.04 #; Lymphocytes # 0.8 10*3/uL (1.4-4.0); Lymphocytes % 12.9 % (21.3-54.2); Mean Corpuscular HGB Conc 34.4 GM/DL (32-36); Mean Corpuscular Volume 93.8 FL (87-102); Mean Platelet Volume 10.4 FL (9.6-12.0); Monocytes # 0.2 10*3/uL (0.11-0.8); Monocytes % 4.1 % (1.7-12.7); Neutrophils % 82.1 % (38.7-73.9); Platelet Count 136 T/CUMM (130-400); Red Blood Count 2.57 MC/CUMM (3.8-5.5); Red Cell Distribution Width 12.4 % (9.3-17.3); White Blood Count 5.9 T/CUMM (4-12)
[2021-06-25 04:16] LABS: Calcium 7.4 MG/DL (8.5-10.1); Osmolality,Calculated 280.5 MOS/KG (273-304); Potassium 3.5 MMOL/L (3.5-5.1)
[2021-06-25] MEDS: metroNIDAZOLE INJ 500 MG/100 ML PREMIX IV SCH ×3 (04:49→22:05)
[2021-06-25] MEDS: SODIUM BICARBONATE 650 MG TABLET PO SCH ×2 (08:13→20:43)
[2021-06-25] MEDS: FLUDROCORTISONE 0.1 MG TABLET PO SCH ×3 (08:13→20:43)
[2021-06-25] MEDS: LEVOTHYROXINE 175 MCG TABLET PO SCH (08:13)
[2021-06-25] MEDS ORDERED: HYDROCORTISONE 10 MG TABLET PO PRN (09:25)
[2021-06-25] MEDS: HYDROCORTISONE 10 MG TABLET PO SCH (09:31)
[2021-06-25] MEDS: PANTOPRAZOLE 40 MG VIAL IV SCH (12:39)
[2021-06-25] MEDS: ENOXAPARIN 30 MG/0.3 ML SYRINGE SUBCUT SCH (12:39)
[2021-06-25] MEDS ORDERED: HYDROCORTISONE 10 MG TABLET PO SCH (21:00)
[2021-06-26 04:59] LABS: Eosinophils # 0.1 10*3/uL (0.0-0.87); Eosinophils % 1.3 % (0.00-10.9); Hematocrit 24.1 VOL% (35.7-47.0); Hemoglobin 8.3 GM/DL (12.0-16.0); Immature Granulocytes % 0.5 %; Immature Granulocytes Absolute 0.03 #; Lymphocytes # 1.4 10*3/uL (1.4-4.0); Mean Corpuscular HGB Conc 34.4 GM/DL (32-36); Mean Corpuscular Volume 94.5 FL (87-102); Mean Platelet Volume 10.7 FL (9.6-12.0); Monocytes # 0.4 10*3/uL (0.11-0.8); Monocytes % 5.7 % (1.7-12.7); Neutrophils % 70.5 % (38.7-73.9); Platelet Count 149 T/CUMM (130-400); Red Blood Count 2.55 MC/CUMM (3.8-5.5); Red Cell Distribution Width 12.6 % (9.3-17.3); White Blood Count 6.1 T/CUMM (4-12)
[2021-06-26 05:22] LABS: Platelet Estimate Adequate
[2021-06-26 05:22] LABS: Albumin 2.9 G/DL (3.4-5.0); Bilirubin,Total 0.9 MG/DL (0.20-1.00); Calcium 7.1 MG/DL (8.5-10.1); Potassium 3.1 MMOL/L (3.5-5.1); Total Protein 5.5 G/DL (6.4-8.2)
[2021-06-26] MEDS: metroNIDAZOLE INJ 500 MG/100 ML PREMIX IV SCH (05:35)
[2021-06-26 05:48] VITALS: BP 122/84
[2021-06-26] MEDS: POTASSIUM CHLORIDE 20 MEQ TABLET PO PRN ×2 (06:05→09:07)
[2021-06-26] MEDS ORDERED: FLUDROCORTISONE 0.1 MG TABLET PO SCH (09:00)
[2021-06-26] MEDS ORDERED: ENOXAPARIN 40 MG/0.4 ML SYRINGE SUBCUT SCH (09:00)
[2021-06-26] MEDS: LEVOTHYROXINE 175 MCG TABLET PO SCH (09:08)
[2021-06-26] MEDS: FLUDROCORTISONE 0.1 MG TABLET PO SCH (09:09)
[2021-06-26] MEDS: SODIUM BICARBONATE 650 MG TABLET PO SCH (09:10)
[2021-06-26] MEDS: HYDROCORTISONE 10 MG TABLET PO SCH (09:10)
== END 2021-06-26 10:45 | disposition home or self-care (01) | DRG 644 ==
LOC: N.ED 07:30 → N.EDINP 12:26 → SUATTDRO 12:26 → N.CC 12:42
PROVIDERS: ADMIT Internal Medicine; ATTEND Internal Medicine